=== PATIENT | male | born 1995 | race Caucasian/White ===

== ENCOUNTER → 2020-09-27 09:21 | Outpatient (CLI) | payer OTHER, SELFPAY ==
[2020-09-25 09:52] VITALS: BMI 26.2
[2020-09-27 12:45] LABS: Cholesterol 134 mg/dL (200); High Density Lipoprotein 37 mg/dL; Triglycerides 61 mg/dL; Very Low Density Lipoprotein 12 mg/dL (5-40)
[2020-09-27 12:51] LABS: Vitamin D,25 Hydroxy 28.8 ng/mL
[2020-09-27 12:56] LABS: Hemoglobin A1c 4.9 % (3.8-5.6)
== END ==
PROVIDERS: PCP Internal Medicine; Referring Provider Internal Medicine; Visit Provider Internal Medicine
DX: Z13.220 Encounter for screening for lipoid disorders (principal)
CPT/HCPCS: 36415; 80061; 82306; 83036